=== PATIENT | male | born 1985 | race Caucasian/White ===

== ENCOUNTER 2016-12-21 02:49 | Emergency (ER) | payer OTHER ==
[~2016-12-21] VITALS: Ht 1866.9 cm; Wt 79.9 kg
[~2016-12-21 02:49] MED LIST: FLEXERIL5 MG PO; KEFLEX500 MG PO; MOTRIN800 MG PO; NOHOMEMEDS; PEN-VEE K,VEET250 MG PO; PEN-VEE K,VEET500 MG PO; PERCOCET 5/31 TABLET PO; TYLENOL WITH C1 EACH PO
[2016-12-21] MEDS ORDERED: CLEOCIN300 MG PO (04:13)
[2016-12-21] MEDS ORDERED: MOTRIN800 MG PO (04:13)
[2016-12-21 04:36] VITALS: BP 135/86
== END 2016-12-21 04:37 | disposition home or self-care (01) ==
LOC: EME 02:49
DX: S81.801A Unspecified open wound, right lower leg, initial encounter (principal); W22.8XXA Striking against or struck by other objects, initial encounter; Y93.H9 Activity, other involving exterior property and land maintenance, building and construction; Y92.008 Other place in unspecified non-institutional (private) residence as the place of occurrence of the external cause; L03.115 Cellulitis of right lower limb; F17.200 Nicotine dependence, unspecified, uncomplicated
CPT/HCPCS: 73590; 87070; 87075; 87077; 87147; 87186; 87205; 99281; 99283